=== PATIENT | male | born 1950 | race Caucasian/White ===

== ENCOUNTER 2019-03-14 09:47 | Day surgery (SDC) | payer MEDICARE ==
[2019-03-13 12:09] VITALS: BMI 30.2
--- NOTE | 2019-03-14 10:23 | RAD ---
EXAM: Chest PA and lateral: HISTORY: Preoperative exam. COMPARISON: None FINDINGS: Heart: Normal cardiac silhouette Aorta: Unremarkable Pulmonary vessels: Normal Costophrenic angles: Costophrenic angles are clear. Lungs: Patchy interstitial opacities throughout the lung parenchyma which may represent chronic pimentel e. Possibility of edema or infiltrate cannot be excluded. Lungs are hyperinflated. Pneumothorax: No pneumothorax Osseous structures: No osseous abnormalities IMPRESSION: 1. COPD. 2. Increased interstitial opacities the lung parenchyma which may represent chronic change. Superimpo sed edema or infiltrate cannot be excluded.
[2019-03-14 10:34] LABS: #Basophils 0.1 thou/uL (0.0-0.2); #Eosinphils 0.2 thou/uL (0.0-0.7); #Lymphocytes 1.7 thou/uL (1.20-3.40); #Monocytes 0.7 thou/uL (0.11-0.59); #Neutrophils 4.1 thou/uL (1.40-6.50); %Basophils 1.1 % (0.0-1.0); %Eosinophils 2.3 % (0.0-10.0); %Lymphocytes 25.6 % (21.0-51.0); %Monocytes 10.1 % (0.0-10.0); %Neutrophils 60.8 % (42.0-75.0); Hemoglobin 15.5 g/dL (14.0-18.0); Mean Corpuscular HGB CONC 33.4 g/dL (32.0-36.0); Mean Corpuscular Hemoglobin 32.6 pg (27.0-31.0); Mean Corpuscular Volume 97.6 fL (78.0-98.0); Mean Platelet Volume 8.1 fL (7.4-10.4); Platelet Count 143 thou/uL (130-400); RBC Distribution Width 14.1 % (11.5-14.5); Red Blood Cell (RBC) Count 4.74 mill/uL (4.70-6.10); White Blood Cell (WBC) Count 6.8 thou/uL (4.8-10.8)
[2019-03-14 10:37] LABS: Prothrombin Time 13.2 SEC (12.0-14.7)
[2019-03-14] MEDS ORDERED: Midazolam HCl 2 mg/2 ml Vial ONE (11:00)
[2019-03-14] MEDS ORDERED: Fentanyl 100 MCG/2 ML VIAL ONE ×2 (11:00→13:14)
[2019-03-14] MEDS ORDERED: HYDROmorphone 2 MG/ML VIAL ONE (13:34)
[2019-03-14] MEDS ORDERED: Bupivacaine HCl 0.5%/Epinephrine 1:200,000/PF 30 ml Vial ONE (13:55)
[2019-03-14] MEDS ORDERED: PROPOFOL 200 MG/20 ML VIAL ONE (14:33)
[2019-03-14] MEDS ORDERED: Ondansetron PF 4 MG/2 ML Vial ONE (14:33)
[2019-03-14] MEDS ORDERED: Ketorolac Tromethamine 30 MG/ML VIAL ONE (14:33)
[2019-03-14] MEDS ORDERED: Metoclopramide HCl 10 MG/2 ML VIAL ONE (14:33)
[2019-03-14] MEDS ORDERED: Lidocaine 1% PF 5 ML VIAL ONE (14:33)
[2019-03-14] MEDS ORDERED: HYDROcodone/Acetaminophen 5/325 mg Tablet ONE (15:37)
--- NOTE | 2019-03-14 15:51 | RAD ---
3 VIEWS LEFT WRIST: Date: 03/14/19 COMPARISON: 03/04/19. HISTORY: Scaphoid fracture. FINDINGS/IMPRESSION: 3 limited intraoperative fluoroscopic views of the left wrist were submitted for interpretation. The patient is status post screw fixation of a fracture of the scaphoid. No perihardware lucency is seen. POS: [facility]
--- NOTE | 2019-03-15 14:44 | OP ---
DATE OF PROCEDURE: 03/14/2019 PREOPERATIVE DIAGNOSIS: Left scaphoid fracture. POSTOPERATIVE DIAGNOSIS: Left scaphoid fracture. PROCEDURE PERFORMED: Open reduction and internal fixation of left scaphoid fracture. BIRD CAGE ASSEMBLER: Toni Schaefer PA-C ANESTHEIOLOGIST: Sam Gordillo MD ANESTHESIA: The patient received a LMA with a single-shot injection. ESTIMATED BLOOD LOSS: Less than 20 mL. TOURNIQUET TIME: 28 minutes at 2540mmHg. ANTIBIOTICS: Ancef 2 g. IMPLANTS: Synthes 2.4 headless screw. COMPLICATIONS: None. HISTORY OF PRESENT ILLNESS: Mr. Fuentes is a 69-year-old male, who is left- handed. The patient presents with left hand pain after fall. The patient had a history of hepatitis C, diabetes and a 2 mm displacement on scaphoid views. I have discussed the risks and benefits of nonoperative and operative management. He elected for operative management. I discussed the risks and benefits of surgery to include pain, scar, bleeding, infection, damage to vital structures, nonunion, malunion, need for further surgeries, arthritis, damage to tendons, blood clots, and loss of life or limb. The patient understood the risks and benefits and elected to proceed. DESCRIPTION OF PROCEDURE: Time-out was performed designating the patient's left upper extremity as the operative site based on site, consents, and marking. After time-out, tourniquet was brought up and left up for a total of 28 minutes. Incision was made down through the skin dorsally over Gerdys tubercle down on the patient 's FPL. The extensor was opened and the FPL was retracted radially, extensors were retracted laterally, exposed the patient's capsule, I T'd the capsule at the scaphoid articulation, found the membranous connection of the lunate and scaphoid ligament. I placed my guide pin under fluoroscopic guidance with reduction. After placing it to the opposite of the cortex and measuring that distance, I took 4 mm off the screw. I then passed the guidewire through the bone to keep it in position, so I would not lose my place of reduction and passed my screw bearing it. I got good compression on x-rays. I then looked at the overall alignment and views. I did not see any obvious openings on any 4 views taken in pronation, supination, radiation, or deviation. I then washed. We closed our layers with 3-0 nylon. The patient was placed in a thumb spica splint. The patient will follow up me in about 10 to 12 days and can be transitioned to a thumb spica splint. Job ID: [id number] MTDD
--- NOTE | 2019-03-15 17:10 | EKG ---
Test Reason : PREOP Blood Pressure : / mmHG Vent. Rate : 063 BPM Atrial Rate : 063 BPM P-R Int : 238 ms QRS Dur : 114 ms QT Int : 454 ms P-R-T Axes : 041 032 040 degrees QTc Int : 464 ms Sinus rhythm with 1st degree A-V block Incomplete right bundle branch block Inferior infarct , age undetermined Abnormal ECG Confirmed by HEATHER DE LA CRUZ ([id number]) on 03/15/2019 5:10:08 PM Referred By: SERGEY Confirmed By:HEATHER DE LA CRUZ
== END 2019-03-14 16:15 | disposition home or self-care (01) ==
LOC: SDC 09:47
PROVIDERS: ATTEND Orthopaedic Surgery
PROC: 0PSN04Z Reposition Left Carpal with Internal Fixation Device, Open Approach (ICD-10-PCS; principal; 2019-03-14)
DX: S62.022A Displaced fracture of middle third of navicular [scaphoid] bone of left wrist, initial encounter for closed fracture (principal); G89.18 Other acute postprocedural pain; E11.9 Type 2 diabetes mellitus without complications; I11.0 Hypertensive heart disease with heart failure; I50.9 Heart failure, unspecified; M10.9 Gout, unspecified; Z87.891 Personal history of nicotine dependence; Z79.84 Long term (current) use of oral hypoglycemic drugs; Z79.899 Other long term (current) drug therapy; W12.XXXA Fall on and from scaffolding, initial encounter; Y93.89 Activity, other specified; Y92.22 Religious institution as the place of occurrence of the external cause
CPT/HCPCS: 36415; 71046; 76000; 85025; 85610; 93005; 93010; C1713; J0670; J0690; J1170; J1885; J2001; J2250; J2405; J2704; J2765; J3010

== ENCOUNTER 2022-05-10 23:02 | Emergency (ER) | payer MEDICARE ==
[~2022-05-10 23:02] MED LIST: Iopamidol-370 76% 500 ML 1 ML ONE
[2022-05-11 00:03] LABS: Albumin 3.2 g/dL (3.4-4.8); Anion Gap 22 mmol/L (10-20); BUN (Urea Nitrogen) 21 mg/dL (8.4-25.7); Bilirubin, Total 0.9 mg/dL (0.2-1.2); Calc. Creatinine Clearance 0 mL/min (70-130); Calcium 8.2 mg/dL (7.8-10.44); Carbon Dioxide 15 mmol/L (23-31); Chloride 100 mmol/L (98-107); Estimated GFR 44; Globulin 3.7 g/dL (2.4-3.5); Glucose 413 mg/dL (80-115); Potassium 5.2 mmol/L (3.5-5.1); Protein, Total 6.9 g/dL (5.8-8.1); Sodium 132 mmol/L (136-145)
[2022-05-11 00:04] LABS: ALT (SGPT) 34 U/L (8-55); AST (SGOT) 34 U/L (5-34); Alkaline Phosphatase 76 U/L (40-110); CK (CPK) 63 U/L (30-200); Magnesium 1.7 mg/dL (1.6-2.6)
[2022-05-11 00:05] LABS: Band 14 % (5-11); Hemoglobin 10.7 g/dL (14.0-18.0); Hypochromia SLIGHT = 6-15 cells (100X) (0-5/hpf); Lymphocytes 33 % (21-51); MDiff Complete? YES; Mean Corpuscular HGB CONC 33.4 g/dL (32.0-36.0); Mean Corpuscular Volume 89.7 fL (78.0-98.0); Mean Platelet Volume 8.6 fL (7.4-10.4); Neutrophil 53 % (42-75); Platelet Count 197 thou/uL (130-400); Platelet Morphology Comment Appears Adequate; RBC Distribution Width 14.7 % (11.5-14.5); Red Blood Cell (RBC) Count 3.57 mill/uL (4.70-6.10); White Blood Cell (WBC) Count 20.4 thou/uL (4.8-10.8)
[2022-05-11 00:41] LABS: Bacteria/HPF None Seen HPF (None Seen); Bilirubin Negative (Negative); Blood, Urine Negative (Negative); Clarity Clear (Clear); Glucose, Urine (Dipstick) Normal (Negative); Ketone, Urine Negative (Negative); Leukocyte Negative Leu/uL (Negative); Nitrite Negative (Negative); Protein, Urine (Dipstick) 70 mg/dL (Neg-Trace); RBC/HPF 0-3 HPF (0-3); Specific Gravity, Urine 1.011 (1.002-1.036); Squamous Epithelial 0-3 HPF (0-3); Urobilinogen Normal mg/dL (Less than 2); WBC/HPF 0-3 HPF (0-3)
[2022-05-11] MEDS ORDERED: Ketamine 50 MG/ML (10ML VIAL) ONE (01:03)
[2022-05-11 01:08] LABS: Actual Bicarbonate (HCO3a) 14.1 mEq/L (22-28); Analyzer IN Cardio ER; Base Excess (BEa) -10.5 mEq/L (-2.0 to +3.0); CO2 Tension 27.4 mmHg (35.0-45.0); Calcium, Ionized (arterial) 1.01 mmol/L (1.12-1.30); Carboxyhemoglobin (COHb) 1.4 gm% (0.0-3.0); O2 Tension (PaO2), arterial 91.3 mmHg (> 70.0); Potassium - ABG Lab 5.96 mmol/L (3.70-5.30); pH, Arterial 7.33 (7.35-7.45)
== END 2022-05-11 02:48 | disposition short-term general hospital (02) ==
LOC: ERS 23:02
DX: I71.3 Abdominal aortic aneurysm, ruptured (principal); D62 Acute posthemorrhagic anemia; I70.92 Chronic total occlusion of artery of the extremities; I11.0 Hypertensive heart disease with heart failure; I50.9 Heart failure, unspecified; E11.9 Type 2 diabetes mellitus without complications; F17.220 Nicotine dependence, chewing tobacco, uncomplicated
CPT/HCPCS: 36430; 75635; 82550; 82805; 83605; 83735; 84484; 86850; 86900; 86901; 86920; 93005; 96361; 96374; 99285; P9016; 36415; 80053; 81003; 81015; 84443; 85025; Q9967